=== PATIENT | female | born 1985 | race Caucasian/White ===

== ENCOUNTER → 2017-02-11 10:40 | Outpatient (CLI) | payer OTHER, MEDICAID ==
[2012-08-17 08:38] VITALS: BMI 15.6
== END | disposition home or self-care (01) ==
LOC: D.RAD 08:00
DX: R11.2 Nausea with vomiting, unspecified (principal)

== ENCOUNTER → 2019-06-25 08:58 | Outpatient (CLI) | payer MEDICAID ==
[2012-08-17 08:38] VITALS: BMI 15.6
== END | disposition home or self-care (01) ==
LOC: D.CT 08:58
PROVIDERS: ATTEND Internal Medicine Gastroenterology
DX: R10.32 Left lower quadrant pain (principal)

== ENCOUNTER → 2019-07-03 10:16 | Outpatient (CLI) | payer MEDICAID ==
[2012-08-17 08:38] VITALS: BMI 15.6
== END | disposition home or self-care (01) ==
LOC: D.RAD 10:16
PROVIDERS: ATTEND Internal Medicine Gastroenterology
DX: K44.9 Diaphragmatic hernia without obstruction or gangrene (principal); R13.10 Dysphagia, unspecified

== ENCOUNTER 2021-01-16 09:43 | Day surgery (SDC) | payer MEDICAID ==
[2021-01-13 10:23] LABS: HEMATOCRIT 35.7 % (36.0-48.0); HEMOGLOBIN 11.9 g/dL (12-16); MCH 28.4 pg (26.0-34.0); MCHC 33.3 g/dL (31.0-37.0); MCV 85.2 fL (80.0-100.0); MEAN PLATELET VOLUME 8.8 fL (7.4-10.4); RBC 4.19 10x6/uL (4.00-5.40); RDW 14.1 % (11.5-14.5); WBC 4.2 10x3/uL (4.8-10.8)
[~2021-01-16] VITALS: Ht 157.5 cm; Wt 62.1 kg
[2021-01-16 10:31] VITALS: BP 108/70; Ht 157.5 cm; Wt 62.1 kg
--- NOTE | 2021-01-16 14:27 | NUR ---
DISCHARGE INSTRUCTIONS PROVIDED, IV DC'D WITH TIP INTACT
--- NOTE | 2021-01-17 08:21 | OP ---
PATIENT NAME: LARS MARTIN MEDICAL RECORD: [id number] :83 LOCATION:[facility] ADMISSION DATE: SURGEON: WILLARD CARLISLE DO DATE OF OPERATION: 01/16/2021 PROCEDURE PERFORMED: Excision of a cyst in the right index finger. PREOPERATIVE DIAGNOSIS: Right index finger cyst. POSTOPERATIVE DIAGNOSIS: Right index finger cyst. INDICATIONS: Ms. Martin is a 35-year-old female who has had a bump on her right index finger just over her middle phalanx to the ulnar side of it. She says she was trying to catch down things and wanted it removed. An MRI was done, which showed no abnormalities, but certainly has palpable cyst there. She wanted it removed and she was in agreeance with the risks, which were recurrence of the cyst, infection, bleeding, damage to the digital nerve there, damage to the extensor tendon as well, need for further surgery, continued pain, and she signed the consent. SURGEON: Willard Carlisle DO DESCRIPTION OF PROCEDURE: The patient received an axillary block per her request in the preoperative area by anesthesia, given 1 grams of Ancef preoperatively. She was then taken to the operative suite, laid in supine position, given general anesthetic and LMA was placed. The right upper extremity was then prepped and draped in sterile fashion. Time-out was performed and everyone was in agreement as to the correct side, site, patient, and procedure I then made about a cm long incision over the mass that was there. I made careful dissection down to the small cyst coming off the extensor tendon. I removed it and checked for any other masses in the area, there were none. I then had exsanguinated the right upper extremity with a tourniquet and was inflated to 250 mmHg, was up for 9 minutes. I then closed the site with 4-0 nylon in a horizontal mattress and simple stitch. We then let the tourniquet down. It was dressed with Adaptic, 4 x 4s, Kerlix, and a Coban lightly wrapped on the finger. She was then awakened and taken to recovery in stable condition. BLOOD LOSS: Minimal. COMPLICATIONS: None. TRANSINT:[id number] Voice Confirmation ID: [id number] DOCUMENT ID: [id number] WILLARD CARLISLE DO at 0821 CC: [id number] DICTATION DATE: 01/16/21 1251 GENERAL INSPECTOR: 01/16/21 [id number] [facility] 01/16/21 [place] [id number] [place] [id number]
== END 2021-01-16 14:20 | disposition home or self-care (01) ==
LOC: D.OPS 09:43
PROVIDERS: Anesthesiology; ATTEND Orthopaedic Surgery
DX: R22.31 Localized swelling, mass and lump, right upper limb (principal); M79.644 Pain in right finger(s)